=== PATIENT | male | born 1945 | race Two or more races ===

== ENCOUNTER 2023-02-28 08:12 | Inpatient (IN) | payer BC, OTHER ==
[2023-02-25 08:16] LABS: Basophils # (auto) 0 10 ^3/uL (0-0.2); Basophils % (auto) 0.4 % (0.0-2.0); Eosinophils # (auto) 0.1 10 ^3/uL (0-0.8); Eosinophils % (auto) 1.8 % (0.0-7.0); Hematocrit 34.7 % (41.0-53.0); Hemoglobin 11.5 g/dL (13.5-17.5); Lymphocytes # (auto) 1.1 10 ^3/uL (0.4-5.4); Lymphocytes % (auto) 21.2 % (10.0-50.0); Mean Corpuscular Hemoglobin 30.5 pg (28.0-32.0); Mean Corpuscular Hgb Conc. 33.3 g/dL (32.0-36.0); Mean Corpuscular Volume 91.7 fL (80.0-100.0); Monocytes # (auto) 0.3 10 ^3/uL (0-1.3); Neutrophils # (auto) 3.7 10 ^3/uL (1.6-8.6); Neutrophils % (auto) 70.6 % (37.0-80.0); Red Blood Cells 3.78 10^6/uL (4.5-5.90); Red Cell Distribution Width 16.2 % (11.8-14.3); White Blood Cell 5.3 10^3/uL (4.4-10.8)
[2023-02-25 08:20] LABS: Urine Bacteria NONE SEEN /hpf (None Seen); Urine Blood Negative /uL (Negative); Urine Clarity Clear (Clear); Urine Color Yellow (Yellow); Urine Protein, UAD TRACE (Negative); Urine Specific Gravity 1.024 (1.001-1.035); Urine Urobilinogen Normal (Negative); Urine WBC <1 /hpf (0 - 3)
[2023-02-25 08:39] LABS: INR 1.09 (0.9-1.15); Partial Thromboplastin Time 28.9 SEC (24.5-34.5); Prothrombin Time 11.4 sec (9.3-11.8)
[2023-02-25 09:15] LABS: Alanine Aminotransferase 21 U/L (7-40); Albumin 4.4 g/dL (3.2-4.8); Alkaline Phosphatase 95 U/L (46-116); Anion Gap 5 (5-15); Aspartate Aminotransferase 21 U/L (13-40); BUN/Creatinine Ratio 17.6 (10.0-20.0); Blood Urea Nitrogen 19 mg/dL (9-23); Calcium 10.2 mg/dL (8.5-10.1); Carbon Dioxide 29 mmol/L (20-30); Chloride 106 mmol/L (98-107); Glucose 173 mg/dL (74-106); Potassium 4.5 mmol/L (3.5-5.1); Sodium 140 mmol/L (136-145)
[2023-02-25 09:16] LABS: Bilirubin, Total 0.3 mg/dL (0.2-1.0); Total Protein 7.1 g/dL (5.7-8.2)
[~2023-02-28] VITALS: Ht 172.7 cm; Wt 86.2 kg
[~2023-02-28 08:12] MED LIST: ACET-1803 PO; ASCO500T11 PO; ASPI1TAB20 PO; CALC1TAB64 PO; CHOL100055 PO; CHONCAP OR; CYAN-17 PO; DICL1GEL59 EX; DICL50TA4 PO; FENO160T PO; METF-372 PO; MULT-1018 OR; OMEGCAP28 OR; OMEP20TA PO; PIO30T PO; SITA100T7 PO; TAMS0.4C36 PO; TRAM50TA2 PO; VALS160T6 PO; [UNRECOGNIZED DRUG - CODE] PO
[2023-02-28] MEDS ORDERED: ceFAZolin 2 GM/D5W100ml 100 ML IV ONE (09:35)
[2023-02-28] MEDS ORDERED: SODIUM CHLORIDE LOCK 10 ML ONE (10:57)
[2023-02-28] MEDS ORDERED: MIDAZOLAM HCL 2MG/2ML 2ml VIAL (1mg/ml) ONE (10:57)
[2023-02-28] MEDS ORDERED: ROCURONIUM 10MG/ML 10ML VIAL IV ONE (10:57)
[2023-02-28] MEDS ORDERED: MEPERIDINE HCL (25 MG/ML) 1ML VIAL ONE (10:57)
[2023-02-28] MEDS ORDERED: ONDANSETRON HCL 4 MG/2 ML VIAL ONE (10:57)
[2023-02-28] MEDS ORDERED: NEOSTIGMINE 1 MG/ML INJ (10mg/10ML VIAL) ONE (10:57)
[2023-02-28] MEDS ORDERED: DexAMETHasone SOD PHOS 10MG/1ML VIAL INJ ONE (10:57)
[2023-02-28] MEDS ORDERED: PROPOFOL 10 MG/ML 20 ML IV ONE (10:57)
[2023-02-28] MEDS ORDERED: LIDOCAINE 2% (LOCAL ANESTH.) PF 5ml SDV ONE (11:14)
[2023-02-28] MEDS ORDERED: TRANEXAMIC ACID 20 ML ONE (11:39)
[2023-02-28] MEDS ORDERED: PROPOFOL 200 ML IV ONE (11:40)
[2023-02-28] MEDS ORDERED: fentaNYL CITRATE 10 ML ONE (11:41)
[2023-02-28] MEDS ORDERED: GLYCOPYRROLATE 0.2 MG/ML 1ML VIAL ONE (11:42)
[2023-02-28] MEDS ORDERED: HYDROmorphone HCL 2 MG/ML VL/or syr IV PRN ×2 (11:45)
[2023-02-28] MEDS ORDERED: MORPHINE SULFATE INJ 2 MG/ml SYRG IV PRN ×3 (11:45→16:00)
[2023-02-28] MEDS ORDERED: METOCLOPRAMIDE HCL 5MG/ml INJ 2ml VIAL IV PRN (11:45)
[2023-02-28] MEDS ORDERED: ACCU-CHEK COMFORT CURVE STRIP VI ONE (11:45)
[2023-02-28] MEDS ORDERED: LIDOCAINE 2% JELLY 11ml (GLYDO) ONE (11:58)
[2023-02-28] MEDS ORDERED: ePHEDrine SULFATE 50 MG/ML AMP ONE (13:01)
[2023-02-28] MEDS ORDERED: NITROGLYCERIN 0.4 MG SL TAB SL PRN (16:00)
[2023-02-28] MEDS ORDERED: ACETAMINOPHEN 325 MG TAB PO PRN (16:00)
[2023-02-28] MEDS: D5W/SOD CHLO 0.9% 1,000 ML IV SCH ×2 (16:00→22:30)
[2023-02-28] MEDS ORDERED: ONDANSETRON HCL 4 MG/2 ML VIAL IV PRN (16:00)
[2023-02-28] MEDS ORDERED: ceFAZolin 1GM/50ML 50 ML IV SCH (16:00)
[2023-02-28] MEDS ORDERED: HYDROcodone-ACET 10/325MG TAB PO PRN (16:00)
[2023-02-28 16:23] VITALS: RESP 12; O2SAT 94
[2023-02-28] MEDS ORDERED: DEXTROSE (50%) 50ML SYRG IV PRN (16:45)
[2023-02-28] MEDS ORDERED: LABETALOL HCL 5 MG/ML 4ML SYRINGE IV ONE (17:45)
[2023-02-28] MEDS ORDERED: TAMSULOSIN HYDROCHLORIDE 0.4 MG CAP PO SCH (22:00)
[2023-02-28] MEDS: CYCLOBENZAPRINE HCL 10 MG TAB PO SCH (22:11)
[2023-02-28] MEDS: DOCUSATE SOD 100 MG CAP PO SCH (22:11)
[2023-02-28] MEDS: ACCU-CHEK COMFORT CURVE STRIP VI SCH (22:22)
[2023-02-28] MEDS: InsuLIN REG 1unit/0.01ml Soln (100units/ml) SC SCH (22:51)
[2023-03-01 00:34] VITALS: PULSE 68; RESP 18; RESP 68; TEMP 98.7; TEMP 98.9; O2SAT 97
[2023-03-01] MEDS: hydrALAZINE HCL 20 MG/ML VL IV PRN ×3 (03:26→18:48)
[2023-03-01 05:00] VITALS: BP 153/49; PULSE 108; RESP 16; TEMP 97.5; O2SAT 93
[2023-03-01 05:55] LABS: Basophils # (auto) 0 10 ^3/uL (0-0.2); Basophils % (auto) 0.2 % (0.0-2.0); Eosinophils # (auto) 0 10 ^3/uL (0-0.8); Hematocrit 34.3 % (41.0-53.0); Hemoglobin 11.2 g/dL (13.5-17.5); Lymphocytes # (auto) 1.1 10 ^3/uL (0.4-5.4); Lymphocytes % (auto) 6.9 % (10.0-50.0); Mean Corpuscular Hemoglobin 29.7 pg (28.0-32.0); Mean Corpuscular Hgb Conc. 32.6 g/dL (32.0-36.0); Mean Corpuscular Volume 91.1 fL (80.0-100.0); Monocytes # (auto) 0.7 10 ^3/uL (0-1.3); Monocytes % (auto) 4.6 % (0.0-12.0); Neutrophils # (auto) 14.3 10 ^3/uL (1.6-8.6); Neutrophils % (auto) 88.3 % (37.0-80.0); Red Blood Cells 3.76 10^6/uL (4.5-5.90); Red Cell Distribution Width 15.9 % (11.8-14.3); White Blood Cell 16.1 10^3/uL (4.4-10.8)
[2023-03-01 05:59] LABS: Alanine Aminotransferase 17 U/L (7-40); Albumin 4.1 g/dL (3.2-4.8); Alkaline Phosphatase 86 U/L (46-116); Anion Gap 10 (5-15); Aspartate Aminotransferase 25 U/L (13-40); BUN/Creatinine Ratio 12.6 (10.0-20.0); Blood Urea Nitrogen 13 mg/dL (9-23); Calcium 9.5 mg/dL (8.5-10.1); Carbon Dioxide 23 mmol/L (20-30); Chloride 104 mmol/L (98-107); Glucose 183 mg/dL (74-106); Potassium 3.7 mmol/L (3.5-5.1); Sodium 137 mmol/L (136-145)
[2023-03-01 06:00] LABS: Bilirubin, Total 0.6 mg/dL (0.2-1.0); Total Protein 6.7 g/dL (5.7-8.2)
[2023-03-01] MEDS: CYCLOBENZAPRINE HCL 10 MG TAB PO SCH ×2 (06:20→18:42)
[2023-03-01] MEDS: ACCU-CHEK COMFORT CURVE STRIP VI SCH ×4 (06:21→18:42)
[2023-03-01] MEDS: InsuLIN REG 1unit/0.01ml Soln (100units/ml) SC SCH ×4 (06:32→18:56)
[2023-03-01] MEDS ORDERED: ceFAZolin 1GM/50ML 50 ML IV SCH ×2 (06:45)
[2023-03-01 08:00] VITALS: BP 155/64; PULSE 100; PULSE 109; RESP 18; RESP 20; TEMP 98.9; O2SAT 92
[2023-03-01 08:30] VITALS: PULSE 93
[2023-03-01] MEDS: DOCUSATE SOD 100 MG CAP PO SCH (09:51)
[2023-03-01 12:00] VITALS: BP 141/67; PULSE 102; PULSE 104; RESP 20; TEMP 98.4; O2SAT 91
[2023-03-01] MEDS: D5W/SOD CHLO 0.9% 1,000 ML IV SCH (12:00)
[2023-03-01 16:00] VITALS: BP 170/87; PULSE 105; RESP 21; TEMP 97.9; O2SAT 92
[2023-03-01] MEDS ORDERED: ASCORBIC ACID 500 MG TAB PO SCH (22:00)
[2023-03-01] MEDS ORDERED: traMADol HCL 50 MG TAB PO PRN (22:00)
[2023-03-02] MEDS ORDERED: ASPirin-EC 81 mg tab PO SCH (10:00)
[2023-03-02] MEDS ORDERED: PIOGLITAZONE HYDROCHLORIDE 30 MG TAB PO SCH (10:00)
[2023-03-02] MEDS ORDERED: CHOLECALCIFEROL (VITD3) 1,000UNIT=25mCg TAB PO SCH (10:00)
== END 2023-03-01 19:30 | disposition home health service (06) | DRG 472 ==
LOC: SUR 08:12 → EDSTATUS 09:45 → TELE 15:50 → TELE-WESTW 18:32
PROVIDERS: ADMIT Orthopaedic Surgery; ATTEND Internal Medicine
PROC: 0RB30ZZ Excision of Cervical Vertebral Disc, Open Approach (ICD-10-PCS; 2023-02-28)
PROC: 01N10ZZ Release Cervical Nerve, Open Approach (ICD-10-PCS; 2023-02-28)
PROC: 00NW0ZZ Release Cervical Spinal Cord, Open Approach (ICD-10-PCS; 2023-02-28)
PROC: 0RG20A0 Fusion of 2 or more Cervical Vertebral Joints with Interbody Fusion Device, Anterior Approach, Anterior Column, Open Approach (ICD-10-PCS; 2023-02-28)
PROC: 4A11X4G Monitoring of Peripheral Nervous Electrical Activity, Intraoperative, External Approach (ICD-10-PCS; 2023-02-28)
PROC: 0RG20A0 Fusion of 2 or more Cervical Vertebral Joints with Interbody Fusion Device, Anterior Approach, Anterior Column, Open Approach (ICD-10-PCS; principal; 2023-02-28 12:09)
DX: M48.02 Spinal stenosis, cervical region (principal); M50.022 Cervical disc disorder at C5-C6 level with myelopathy; E11.9 Type 2 diabetes mellitus without complications; I10 Essential (primary) hypertension; N40.0 Benign prostatic hyperplasia without lower urinary tract symptoms; E78.5 Hyperlipidemia, unspecified; M50.122 Cervical disc disorder at C5-C6 level with radiculopathy
CPT/HCPCS: 36415; 71045; 72040; 76000; 80053; 81001; 82962; 83036; 85025; 85610; 85730; 86850; 86900; 86901; 97163; G0378; J0690; J1100; J1815; J2001; J2250; J2405; J2704